=== PATIENT | female | born 1940 | race Caucasian/White ===

== ENCOUNTER → 2017-01-21 | Outpatient (CLI) | payer MEDICARE, OTHER ==
[~2017-01-21] MED LIST: ATARAX-DPS25 MG PO; CALTRATE-600 W600 MG PO; COZAAR DPS50 MG PO; ECOTRIN81 MG PO; FOLIC ACID0.8 MG PO; LIPITOR DPS40 MG PO; MIRALAX PACKET17 GM PO; OXY IR DPS5 MG PO; PRESERVISION A1 EAC2 PO; SENOKOT S1 TAB PO; TEARS NATURAL D15 ML OU; TYLENOL DPS325 MG PO; ULTRAM DPS50 MG PO; VITAMIN D-32000 UNI1 PO; XARELTO10 MG PO; ZANTAC DPS150 MG PO
== END | disposition home or self-care (01) ==
LOC: RAD.S 12:12
DX: M25.462 Effusion, left knee (principal); M25.562 Pain in left knee; S83.232A Complex tear of medial meniscus, current injury, left knee, initial encounter; M17.12 Unilateral primary osteoarthritis, left knee

== ENCOUNTER → 2017-02-15 | Outpatient (CLI) | payer MEDICARE, OTHER | END | disposition home or self-care (01) | LOC: PTH.S 09:57 | DX: Z01.818 Encounter for other preprocedural examination (principal) ==

== ENCOUNTER 2017-03-02 09:42 | Inpatient (IN) | payer MEDICARE, OTHER ==
[~2017-03-02] VITALS: Ht 175.3 cm; Wt 98.9 kg
[~2017-03-02 09:42] MED LIST changes: -CALTRATE-600 W600 MG PO; -ECOTRIN81 MG PO; -FOLIC ACID0.8 MG PO; -MIRALAX PACKET17 GM PO; -OXY IR DPS5 MG PO; -PRESERVISION A1 EAC2 PO; -SENOKOT S1 TAB PO; -TEARS NATURAL D15 ML OU; -TYLENOL DPS325 MG PO; -ULTRAM DPS50 MG PO; -VITAMIN D-32000 UNI1 PO; -XARELTO10 MG PO
--- NOTE | 2017-03-02 15:54 | HP ---
ADMIT: 03/02/2017 RM/LOC: W.Darrell [facility] MR#: [id number] [facility] [address] [address] AMBROSE SPAIN [address] [place] [address] Pre-OP History and Physical SEX: F AGE: 76 : 1940 DATE OF SERVICE: CHIEF COMPLAINT: Left knee pain. HISTORY OF PRESENT ILLNESS: The patient is a 76-year-old white female with left knee pain. She had it on and off for years. She had a cortisone shot. It hurts along the medial joint line and kneecap. PAST MEDICAL HISTORY: Significant for hypertension, GERD. MEDICATIONS: Takes: 1. Aspirin. 2. PreserVision. 3. Vitamin D3. 4. Folic acid. 5. Atorvastatin. 6. Tramadol. 7. Losartan. 8. Caltrate. ALLERGIES: TO LATEX, LISINOPRIL, AND LORTAB. SOCIAL HISTORY: The patient is a former smoker. Does not regularly drink alcohol. PHYSICAL EXAMINATION: HEENT: Normocephalic and atraumatic. CV: Regular rate and rhythm. LUNGS: Benign. ABDOMEN: Benign. NEUROLOGIC: Awake and oriented x3. MUSCULOSKELETAL: Shows the patient has pain over the medial joint line and the patellofemoral joint. Full extension, 130 degrees of flexion. Negative Gerri. Negative anterior drawer. Negative posterior drawer. Mediolateral collateral ligament intact to stressing. ADMIT: 03/02/2017 RM/LOC: W.Darrell [facility] MR#: [id number] [address] [address] AMBROSE SPAIN [address] [place] [address] Pre-OP History and Physical SEX: F AGE: 76 : 1940 DIAGNOSTIC DATA: X-rays show the patient has a significant narrowing medially and along the patellofemoral joint. MRI scans show tricompartmental DJD. ASSESSMENT AND PLAN: Left knee tricompartmental degenerative joint disease. At this point in time, we will plan on left total knee arthroplasty. The patient understands the risks and benefits of the surgical intervention which include, but not limited to infection, DVT, arthrofibrosis, neurovascular injury, early loosening, , etc., and desires to proceed. She will see Dr. Silva for preoperative medical clearance and to follow her postoperatively while in the hospital for anticoagulation and any medical issues that may arise. Please refer to that H and P for any in-depth medical issues or medication changes. Jerod Baird MD/ kalyan JOB #: [id number] CC: Jerod Baird, Attending Physician Carlyn Silva, Family Physician
[2017-03-07] MEDS ORDERED: ULTRAM DPS50 MG PO (08:02)
[2017-03-07] MEDS ORDERED: CALTRATE-600 W600 MG PO (08:03)
[2017-03-07] MEDS ORDERED: FOLIC ACID0.8 MG PO (08:03)
[2017-03-07] MEDS ORDERED: PRESERVISION A1 EAC2 PO (08:03)
[2017-03-07] MEDS ORDERED: VITAMIN D-32000 UNI1 PO (08:03)
[2017-03-07] MEDS ORDERED: ECOTRIN81 MG PO (08:03)
[2017-03-07] MEDS ORDERED: SENOKOT S1 TAB PO (08:04)
[2017-03-07] MEDS ORDERED: TYLENOL DPS325 MG PO (08:04)
[2017-03-07] MEDS ORDERED: TEARS NATURAL D15 ML OU (08:04)
[2017-03-07] MEDS ORDERED: MIRALAX PACKET17 GM PO (08:04)
[2017-03-07] MEDS ORDERED: OXY IR DPS5 MG PO (08:04)
[2017-03-07] MEDS ORDERED: XARELTO10 MG PO (08:05)
--- NOTE | 2017-03-09 14:03 | OR ---
ADMIT: 03/02/2017 RM/LOC: 525 [facility] [place] [facility]#: [id number] [id number] [address] [address] STEPHANIE SPAINIS Anthony [address] [place] [address] Operative/Delivery Room Report SEX: F AGE: 76 : 1940 SURGERY DATE: 03/02/2017 SURGEON: Jerod Baird MD PREOPERATIVE DIAGNOSIS: Left knee degenerative joint disease. POSTOPERATIVE DIAGNOSIS: Left knee degenerative joint disease. PROCEDURE PERFORMED: Left total knee arthroplasty with a Sher and Sher system, size 5; posterior stabilized femoral component, size 4 tibial tray; 10 mm posterior stabilized tibial insert, and size 41 patellar button. PENS AND PENCILS DIPPER: Rajendra Walden PA-C. ANESTHESIA: Spinal. ESTIMATED BLOOD LOSS: Minimal. FLUIDS: Per anesthetic record. COMPLICATIONS: No complications. DRAINS: One drain. TOURNIQUET TIME: 52 minutes. CONDITION ON DISCHARGE: The patient returned to recovery room in fair condition. INDICATIONS: The patient has left severe knee DJD. She has failed nonoperative treatment with injections, medications, etc. She desired total knee arthroplasty. She understood the risks and benefits of the procedure and desired to proceed with the operation. PROCEDURE IN DETAIL: The patient had a spinal placed in preoperative area, laid in the supine position. All bony prominences were well padded. A well- padded tourniquet was applied to the left lower extremity. The left lower extremity was prepped and draped in the usual sterile fashion. It was exsanguinated and tourniquet inflated to 350 mmHg. An anterior incision was made starting over the medial aspect of the tibial tubercle carried proximal to the patella through the skin and subcutaneous tissue with a skin knife. Medial arthrotomy was then performed with a #10 blade. The patella everted, knee flexed. ACL, PCL, medial and lateral menisci excised. Step drill was then used to open the intramedullary canal of the femur. I placed the IM alignment guide with the distal femoral cutting block down the intramedullary canal of the femur, set at 5 degrees of valgus cut and 13 mm of resection due to flexion contracture. I pinned it to the anterior aspect of the distal femur. I cut the distal femur using an oscillating saw. I removed this cutting block and sized the femur at a 5. I placed a size 5 four-in-one ADMIT: 03/02/2017 RM/LOC: 525 [facility] [place] MR#: [id number] [address] [address] AMBROSE SPAIN [address] [place] [address] Operative/Delivery Room Report SEX: F AGE: 76 : 1940 cutting block in the distal aspect of the femur in 3 degrees of external rotation, made the 4 appropriate cuts using an oscillating saw. I removed this cutting block and placed the box cutting jig on the distal aspect of the femur. I cut the box of the distal femur using a reciprocating saw. The proximal tibia was then cut perpendicular to the long axis of the tibial shaft using the proximal tibial cutting guide and oscillating saw. The posterior aspect of the patella was cut, flushed with the posterior aspects of the quadriceps patella tendons using the patella cutting saw. This was sized at a 41 and step drilled with the guide. I then placed trial components. I ran the knee through a range of motion. It had excellent range of motion, stability, and patellar tracking. Thus, the femoral component was step drilled, tibial component was step drilled and cruciate punched. Trial components were then removed. Knee was thoroughly irrigated with bacitracin solution and dried. Knee was thoroughly injected with Exparel-like compound. I then cemented the tibia, patellar, and femoral components in place removing all our extraneous cement as it dried and then packed a 10 mm insert into the tibial tray and ran the knee through a range of motion. It had full extension, full flexion, excellent stability, and patellar tracking. One deep drain was then placed. Medial arthrotomy was closed using #1 Vicryl. Subcutaneous tissue was closed using 2-0 Vicryl. Skin was closed using angelito. Wounds were washed and dried, dressed with sterile Adaptic, 4x4s, ABD, Webril, and an Jeremi wrap. Drapes were removed, tourniquet let down. The patient was transferred back to the recovery room in fair condition. Jerod Baird MD/ kalyan JOB #: [id number] CC: Jerod Baird, Attending Physician Carlyn Silva, Family Physician
--- NOTE | 2017-03-23 13:43 | DS ---
ADMIT: 03/02/2017 RM/LOC: 525 [facility] MR#: [id number] [address] [address] AMBROSE SPAIN [address] [place] [address] General Discharge Summary SEX: F AGE: 76 : 1940 ADMISSION DATE: 03/02/2017 DISCHARGE DATE: 03/05/2017 DATE OF SURGERY: 03/02/2017. REASON FOR ADMISSION: Left knee pain, elective left total knee arthroplasty. HISTORY OF PRESENT ILLNESS: A 76-year-old, white female with left knee pain and a standing history of degenerative joint disease. She had pain on and off for years. She has also had a cortisone shot and failed conservative management. She states that it hurts along the medial joint line and knee cap and is presenting for a total knee arthroplasty. PREOPERATIVE DIAGNOSIS: Left knee degenerative joint disease. POSTOPERATIVE DIAGNOSIS: Left knee degenerative joint disease. PROCEDURE PERFORMED: Left total knee arthroplasty. SURGEON: Jerod Baird MD BEND UP: Rajendra Walden PA-C ANESTHESIA: Spinal. ESTIMATED BLOOD LOSS: Minimal. COMPLICATIONS: None. PAST MEDICAL HISTORY: Hypertension and gastroesophageal reflux disease. HOSPITAL COURSE: The patient was admitted on 03/02/2017, discharged on 03/05/2017 following stay of 3 days and discharge disposition was home with health care. While the patient was in the hospital, pain is well managed with oral analgesics as well as intravenous analgesics from time to time. The patient was seen by Orthopedic each day when they were here, and questions and concerns were answered at that time. Vital signs stayed well within normal limits. While in the hospital, hemoglobin fell to a low of 10.7. Overall, the patient handled the acute postoperative phase of the procedure very well. They attended occupational and physical therapy sessions, and there were no questions from either green party during those services. Prior to discharge, the patient met with Social Work Services and discussed discharge disposition to home with home health care was and we all agreed. Prior to being discharged home, the patient was asked to contact the [facility]opedic Clinic if they had any questions prior to the first followup appointment. DISCHARGE MEDICATIONS: 1. Cozaar 50 mg p.o. daily. 2. MiraLAX 17 g p.o. daily. ADMIT: 03/02/2017 RM/LOC: 525 [facility] MR#: [id number] [address] [address] AMBROSE SPAIN [address] [place] [address] General Discharge Summary SEX: F AGE: 76 : 1940 3. Zantac 150 p.o. daily. 4. Senokot 1 tab p.o. b.i.d. 5. Tylenol 325 p.o. p.r.n. 6. Tramadol 1 to 2 tabs every 4 to 6 hours p.r.n. 7. Xarelto 10 mg p.o. daily. 8. Oxy-IR 5 mg 1 to 2 tabs every 4 to 6 hours p.r.n. 9. Atorvastatin 40 mg p.o. 10.Folic acid 800 mg p.o. 11.Losartan 50 mg p.o. daily. DISCHARGE DIAGNOSIS: Left knee degenerative joint disease, status post left total knee arthroplasty. DISCHARGE INSTRUCTIONS: The patient is going to follow up in Orthopedic Clinic in 2 weeks and followup with primary care as needed and wear OMAR hose everyday for the next 4 to 6 weeks, off for 1 hour twice daily, wear the leg immobilizer at night with the first 4 to 6 weeks and can start outpatient physical therapy, schedule appointments based on the time needs. I asked them to contact the Orthopedic Clinic with any questions prior to the first followup appointment. MANUELITO Lobo / Jerod Baird MD / kalyan JOB #: [id number] CC: Jerod Baird MD, Attending Physician Carlyn Silva MD, Family Physician
== END 2017-03-05 13:32 | disposition home health service (06) | DRG 470 ==
LOC: 5MS 09:42 → WOR 09:42 → 5MS 13:41
PROVIDERS: ADMIT Orthopaedic Surgery
PROC: 0SRD0J9 Replacement of Left Knee Joint with Synthetic Substitute, Cemented, Open Approach (ICD-10-PCS; principal; 2017-03-02)
DX: M17.0 Bilateral primary osteoarthritis of knee (principal); I27.2 Other secondary pulmonary hypertension; D64.9 Anemia, unspecified; D62 Acute posthemorrhagic anemia; I10 Essential (primary) hypertension; E78.2 Mixed hyperlipidemia; K21.9 Gastro-esophageal reflux disease without esophagitis; Z82.49 Family history of ischemic heart disease and other diseases of the circulatory system; Z87.891 Personal history of nicotine dependence; Z79.82 Long term (current) use of aspirin